=== PATIENT | male | born 1965 | race Caucasian/White ===

== ENCOUNTER 2017-05-17 19:49 | Emergency (ER) | payer MEDICAID, MEDICARE ==
[~2017-05-17] VITALS: Ht 185.4 cm; Wt 72.6 kg
[~2017-05-17 19:49] MED LIST: ACETAMINOPHEN-1 EAC1 ORAL; CIPROFLOXACIN500 M2 ORAL; METRONIDAZOLE500 MG ORAL; VIBRAMYCIN100 MG ORAL
[2017-05-17] MEDS ORDERED: VIBRAMYCIN100 MG ORAL (20:30)
[2017-05-17] MEDS ORDERED: TIVICAY50 MG ORAL (20:30)
[2017-05-17] MEDS ORDERED: ACYCLOVIR800 MG ORAL (20:30)
[2017-05-17] MEDS ORDERED: ODEFSEY TABLET1 EACH PO (20:30)
[2017-05-17] MEDS ORDERED: Lidocaine 1% 10mg/ml/EPI 0.01mg/ml 50ml INJ ONE (21:00)
--- NOTE | 2017-05-17 21:45 | Emergency Room Report ---
History of Present Illness General Chief Complaint: Skin Rash/Abscess Source: Patient Present Illness HPI Patient 52-year-old male presented after increased left groin area. Patient gradual onset of symptoms. Patient had denied recent fever. He reported having increased pain to his left calf which had become increasingly swollen. Patient said he had prior history of psoriasis and had injury after recent scratching to the left lateral leg. The patient states he is HIV positive and but has had normal CD4 counts. Allergies: Coded Allergies: No Known Allergies (Unverified , 05/17/17) Patient History Past Medical History: HIV Reviewed Nursing Documentation: PMH: Agreed, PSxH: Agreed Nursing Documentation-PM Past Medical History: No History, Except For Hx Hypertension: Yes Review of Systems All Other Systems: negative except mentioned in HPI Physical Exam Vital Signs Date Time Temp Pulse Resp B/P Pulse Ox O2 Delivery O2 Flow Rate FiO2 05/17/17 20:26 98.2 112 19 109/77 97 Room Air Sp02 EP Interpretation: reviewed, normal General Appearance: normal inspection, well appearing, no apparent distress, alert, GCS 15 Head: atraumatic ENT: normal ENT inspection, hearing grossly normal, normal voice Neck: normal inspection, full range of motion, supple, no bony tend Respiratory: normal inspection, lungs clear, normal breath sounds, no respiratory distress, no retraction, no wheezing Cardiovascular #1: regular rate, rhythm, no edema Gastrointestinal: normal inspection, normal bowel sounds, non tender, soft, no guarding, no hernia Genitourinary: no CVA tenderness Musculoskeletal: normal inspection, back normal, normal range of motion Neurologic: normal inspection, alert, responsive, speech normal Psychiatric: normal inspection, judgement/insight normal, mood/affect normal Skin: no rash, other - left leg erythema induration to left lateral calf. Procedures Incision and Drainage Incision and Drainage : Consent: Verbal Blade Size: 15 I & D Procedure: betadine prep, sterile drapes applied Wound Location: lower extremity Wound's Depth, Shape: into muscle Wound Length (cm): 1 Wound Explored: clean Anesthesia: Lidocaine w/ Epi Volume Anesthetic (ccs): 7 Patient Tolerated: Well Complications: None Medical Decision Making Diagnostic Impression: Primary Impression: Cellulitis and abscess of leg Additional Impression: HIV (human immunodeficiency virus infection) ER Course Patient presented for skin rash. Differential diagnosis included was not limited to abscess, cellulitis, folliculitis, necrotizing fasciitis. Because of complexity of patient's case laboratory testing and imaging studies were ordered.The patient noted be recently on steroids The patient was given IV antibiotics as well as IV fluids. A chest x-ray showed no evidence of the patient was on monitor tech. The patient was noted to have evidence of abscess to his left lower extremity. This was incised and drained with a moderate amount purulent material. Patient given Toradol for pain.Patient is advised to recheck with her primary care physician in the next one to 2 days for wound recheck patient given prescription for antibiotics. Laboratory Tests Test 05/17/17 20:55 05/17/17 21:40 Sodium Level 133 mEQ/L (135-145) L Potassium Level 4.6 mEQ/L (3.4-4.9) Chloride Level 96 mEQ/L (98-107) L Carbon Dioxide Level 23 mEQ/L (20-30) Anion Gap 14 (5-15) Blood Urea Nitrogen 13 mg/dL (7-23) Creatinine 0.9 mg/dL (0.7-1.2) Estimate Glomerular Filtration Rate > 60 mL/min (>60) Glucose Level 98 mg/dL (74-106) Calcium Level 9.1 mg/dL (8.6-10.2) Total Bilirubin 0.7 mg/dL (0.0-1.2) Aspartate Amino Transferase (AST) 18 U/L (5-40) Alanine Aminotransferase (ALT) 25 U/L (3-41) Alkaline Phosphatase 81 U/L (40-129) Total Creatine Kinase 60 U/L (38-174) Creatine Kinase MB 2.5 ng/mL (< 6.7) Creatine Kinase MB Relative Index 4.1 Total Protein 7.2 g/dL (6.6-8.7) Albumin 3.9 g/dL (3.5-5.2) Globulin 3.3 g/dL Albumin/Globulin Ratio 1.1 (1.0-2.7) White Blood Count 15.1 K/UL (4.8-10.8) H Red Blood Count 4.32 M/UL (4.70-6.10) L Hemoglobin 14.7 G/DL (14.2-18.0) Hematocrit 42.0 % (42.0-52.0) Mean Corpuscular Volume 97 FL (80-99) Mean Corpuscular Hemoglobin 34.0 PG (27.0-31.0) H Mean Corpuscular Hemoglobin Concent 35.0 G/DL (32.0-36.0) Red Cell Distribution Width 11.6 % (11.6-14.8) Platelet Count 228 K/UL (150-450) Mean Platelet Volume 5.7 FL (6.5-10.1) L Neutrophils (%) (Auto) 83.4 % (45.0-75.0) H Lymphocytes (%) (Auto) 7.5 % (20.0-45.0) L Monocytes (%) (Auto) 8.2 % (1.0-10.0) Eosinophils (%) (Auto) 0.0 % (0.0-3.0) Basophils (%) (Auto) 0.9 % (0.0-2.0) Lactic Acid Level 0.90 mmol/L (0.66-2.22) Troponin I < 0.30 ng/mL (<=0.30) Last Vital Signs Date Time Temp Pulse Resp B/P Pulse Ox O2 Delivery O2 Flow Rate FiO2 05/17/17 20:26 98.2 112 19 109/77 97 Room Air Status: improved Disposition: HOME, SELF-CARE Condition: Stable Scripts Hydrocodone Bit/Acetaminophen 5-325* (NORCO 5-325 TABLET*) 1 Each Tablet 1 TAB ORAL Q4H Y for For Pain, #10 TAB Prov: Spencer Be 05/18/17 Cephalexin* (KEFLEX*) 500 Mg Capsule 500 MG ORAL Q6H, #28 CAP 0 Refills Prov: Spencer Be 05/18/17 Trimethoprim/Sulfamethoxazole 160/800* (BACTRIM DS TABLET*) 1 Each Tablet 1 TAB ORAL Q12H, #14 TAB 0 Refills Prov: Spencer Be 05/18/17 Referrals: NON PHYSICIAN (PCP) Spencer Be May 17, 2017 21:45
[2017-05-17 21:56] LABS: BASOPHILS % (AUTO) 0.9 % (0.0-2.0); LYMPHOCYTES % (AUTO) 7.5 % (20.0-45.0); MEAN CORPUSCULAR VOLUME 97 FL (80-99); MEAN PLATELET VOLUME 5.7 FL (6.5-10.1); MONOCYTES % (AUTO) 8.2 % (1.0-10.0); NEUTROPHILS % (AUTO) 83.4 % (45.0-75.0); PLATELET COUNT 228 K/UL (150-450); RED BLOOD COUNT 4.32 M/UL (4.70-6.10); RED CELL DISTRIBUTION WIDTH 11.6 % (11.6-14.8); WHITE BLOOD COUNT 15.1 K/UL (4.8-10.8)
[2017-05-17 22:16] LABS: TROPONIN I < 0.30 ng/mL (<=0.30)
[2017-05-17 22:19] LABS: ALANINE AMINOTRANSFERASE 25 U/L (3-41); ALBUMIN/GLOBULIN RATIO 1.1 (1.0-2.7); ANION GAP 14 (5-15); ASPARTATE AMINO TRANSFERASE 18 U/L (5-40); CALCIUM 9.1 mg/dL (8.6-10.2); CARBON DIOXIDE 23 mEQ/L (20-30); CHLORIDE 96 mEQ/L (98-107); CREATININE 0.9 mg/dL (0.7-1.2); GLOMERULAR FILTRATION RATE > 60 mL/min (>60); HEMOLYSIS 42; POTASSIUM 4.6 mEQ/L (3.4-4.9); SODIUM 133 mEQ/L (135-145); TOTAL PROTEIN 7.2 g/dL (6.6-8.7)
[2017-05-17 22:29] LABS: CKMB 2.5 ng/mL (< 6.7)
[2017-05-17] MEDS ORDERED: Ketorolac 30mg Inj IV ONE (23:00)
[2017-05-18 00:03] VITALS: BP 109/70
[2017-05-18] MEDS ORDERED: NORCO 5-325 TA1 EAC1 ORAL (00:19)
[2017-05-18] MEDS ORDERED: BACTRIM DS TAB1 EAC1 ORAL (00:19)
[2017-05-18] MEDS ORDERED: KEFLEX500 MG ORAL (00:19)
[2017-05-18 00:46] VITALS: BP 109/70
--- NOTE | 2017-05-18 14:11 | Diagnostic Imaging Report ---
Indication: PAIN Technique: One view of the chest Comparison: none Findings: Patient is rotated to the right. There is a right-sided aortic arch. Lungs and pleural spaces are clear. Impression: No acute process Incidental finding right-sided aortic arch
== END 2017-05-18 00:48 | disposition home or self-care (01) ==
LOC: EMR 21:11
DX: L03.116 Cellulitis of left lower limb (principal); B20 Human immunodeficiency virus [HIV] disease; I10 Essential (primary) hypertension
CPT/HCPCS: 10060; 36415; 71010; 80053; 82550; 82553; 83605; 84484; 85025; 87040; 96374; 96375; 99284; J1885

== ENCOUNTER 2020-01-22 12:29 | Emergency (ER) | payer MEDICARE ==
[~2020-01-22] VITALS: Ht 183.5 cm; Wt 71.7 kg
[~2020-01-22 12:29] MED LIST changes: +ACYCLOVIR800 MG ORAL; +BACTRIM DS TAB1 EAC1 ORAL; +KEFLEX500 MG ORAL; +NORCO 5-325 TA1 EAC1 ORAL; +ODEFSEY TABLET1 EACH PO; +TIVICAY50 MG ORAL
[2020-01-22 13:00] VITALS: BP 138/93
--- NOTE | 2020-01-22 13:01 | NUR ---
ED Nurse Note: Patient walked in to ER c/o right leg abscess, stated so painful to walk. Patient AAO x4, VSS at this time, sk,in is warm to touch.
[2020-01-22] MEDS ORDERED: HYDROcodone/Acetamin 5/325 tab ORAL ONE (13:15)
[2020-01-22] MEDS ORDERED: Cephalexin 250mg/5ml Susp 100mL Bottle ORAL ONE (13:15)
[2020-01-22] MEDS ORDERED: Bactrim-DS 1 tab ORAL ONE (13:15)
[2020-01-22] MEDS ORDERED: NORCO 5-325 TA1 EAC1 ORAL (13:35)
[2020-01-22] MEDS ORDERED: CEPHALEXIN500 MG ORAL (13:35)
[2020-01-22] MEDS ORDERED: DOXYCYCLINE MO100 MG ORAL (13:35)
--- NOTE | 2020-01-22 13:48 | Emergency Room Report ---
History of Present Illness General Chief Complaint: Skin Rash/Abscess Source: Patient (Spencer Be MD) Present Illness HPI Is a 54-year-old male who presents after increased right lower extremity swelling and pain for the past 1 day. Prior history of HIV. Reports having cell count in the 300s. Reports previously being undetectable. States he had increased discomfort to the medial left calf. Reports of increased tenderness to the right groin area. Had been not taking any new medications. Denies any definite fever. Reports having increased generalized dizziness. (Spencer Be MD) Allergies: Coded Allergies: No Known Allergies (Unverified , 05/17/17) COVID-19 Screening Contact w/high risk pt: No Recent Travel to affected area: No Experienced COVID-19 symptoms?: No (Spencer Be MD) Patient History Past Medical History: see triage record Reviewed Nursing Documentation: PMH: Agreed; PSxH: Agreed (Spencer Be MD) Nursing Documentation-PMH Hx Hypertension: Yes (Spencer Be MD) Review of Systems All Other Systems: negative except mentioned in HPI (Spencer Be MD) Physical Exam Vital Signs Date Time Temp Pulse Resp B/P (MAP) Pulse Ox O2 Delivery O2 Flow Rate FiO2 01/22/20 12:53 98.4 91 22 138/93 (108) 98 Room Air Sp02 EP Interpretation: reviewed, normal General Appearance: normal inspection, well appearing, no apparent distress, alert, GCS 15 Head: atraumatic ENT: normal ENT inspection, hearing grossly normal, normal voice Neck: normal inspection, full range of motion, supple, no bony tend Respiratory: normal inspection, lungs clear, normal breath sounds, no respiratory distress, no retraction, no wheezing Cardiovascular #1: regular rate, rhythm, no edema Gastrointestinal: normal inspection, normal bowel sounds, non tender, soft, no guarding, no hernia Genitourinary: no CVA tenderness Musculoskeletal: normal inspection, back normal, normal range of motion Neurologic: alert, responsive, speech normal, normal inspection Psychiatric: normal inspection, judgement/insight normal, mood/affect normal (Spencer Be MD) Procedures Ultrasound Ultrasound : Consent: Verbal Patient Tolerated: Well Complications: None Progress Cobblestoning in the medial aspect of the right lower extremity, upper calf, consistent with a cellulitis. No abscess or other deep space infection were found. (Kyle Whyte MD) Medical Decision Making Diagnostic Impression: Primary Impression: Cellulitis, leg ER Course Briefly, I assumed care of this patient approximately 2 PM. He is a 54-year- old male presenting for pain and swelling of the right lower extremity. Exam consistent with a cellulitis which he has had in the past. At the time of signout we are awaiting labs and imaging results. No evidence of deep space infection or subcutaneous air on x-ray. Bedside ultrasound shows superficial cobblestoning consistent with a cellulitis but no abscess or other major findings. Labs are within normal limits. Patient will be discharged with antibiotics and pain medication. Discussed follow-up and reasons to return to the emergency department. He understands and agrees with this treatment plan. Laboratory Tests Test 01/22/20 13:50 White Blood Count 12.1 K/UL (4.8-10.8) H Red Blood Count 4.50 M/UL (4.70-6.10) L Hemoglobin 14.4 G/DL (14.2-18.0) Hematocrit 41.1 % (42.0-52.0) L Mean Corpuscular Volume 91 FL (80-99) Mean Corpuscular Hemoglobin 32.1 PG (27.0-31.0) H Mean Corpuscular Hemoglobin Concent 35.2 G/DL (32.0-36.0) Red Cell Distribution Width 12.2 % (11.6-14.8) Platelet Count 233 K/UL (150-450) Mean Platelet Volume 5.8 FL (6.5-10.1) L Neutrophils (%) (Auto) 82.8 % (45.0-75.0) H Lymphocytes (%) (Auto) 11.5 % (20.0-45.0) L Monocytes (%) (Auto) 5.2 % (1.0-10.0) Eosinophils (%) (Auto) 0.0 % (0.0-3.0) Basophils (%) (Auto) 0.6 % (0.0-2.0) Sodium Level 137 MMOL/L (136-145) Potassium Level 3.7 MMOL/L (3.5-5.1) Chloride Level 102 MMOL/L (98-107) Carbon Dioxide Level 23 MMOL/L (21-32) Anion Gap 12 mmol/L (5-15) Blood Urea Nitrogen 13 mg/dL (7-18) Creatinine 1.1 MG/DL (0.55-1.30) Estimated Glomerular Filtration Rate > 60 mL/min (>60) Glucose Level 186 MG/DL (74-106) H Calcium Level 9.3 MG/DL (8.5-10.1) Total Bilirubin 0.2 MG/DL (0.2-1.0) Aspartate Amino Transferase (AST) 18 U/L (15-37) Alanine Aminotransferase (ALT) 23 U/L (12-78) Alkaline Phosphatase 79 U/L (46-116) Total Protein 7.3 G/DL (6.4-8.2) Albumin 3.8 G/DL (3.4-5.0) Globulin 3.5 g/dL Albumin/Globulin Ratio 1.1 (1.0-2.7) (Kyle Wyhte MD) Other X-Ray Diagnostic Results Other X-Ray Diagnostic Results : X-Ray ordered: Right lower extremity # of Views/Limited Vs Complete: Complete Indication: Pain Interpretation: no dislocation, no soft tissue swelling, no fractures, other - No subcutaneous gas Impression: No acute disease Electronically Signed by: Electronically signed by Dr. Kyle Whyte (Kyle Whyte MD) Last Vital Signs Date Time Temp Pulse Resp B/P (MAP) Pulse Ox O2 Delivery O2 Flow Rate FiO2 01/22/20 13:00 98.4 91 22 138/93 98 Room Air (Spencer Be MD) Disposition: HOME, SELF-CARE Condition: Stable Scripts Cephalexin* (KEFLEX*) 500 Mg Capsule 500 MG ORAL EVERY 6 HOURS, #28 CAP Prov: Spencer Be MD 01/22/20 Doxycycline Monohydrate* (DOXYCYCLINE MONOHYDRATE*) 100 Mg Capsule 100 MG ORAL TWICE A DAY, #14 CAP 0 Refills Prov: Spencer Be MD 01/22/20 Hydrocodone Bit/Acetaminophen 5-325* (NORCO 5-325 TABLET*) 1 Each Tablet 1 TAB ORAL Q4H PRN for FOR PAIN, #12 TAB 0 Refills Prov: Spencer Be MD 01/22/20 Patient Instructions: Cellulitis, [id number] Spencer Be MD Jan 22, 2020 13:48 Kyle Whyte MD Jan 22, 2020 15:32
--- NOTE | 2020-01-22 13:50 | NUR ---
ED Nurse Note: Blood specimen collected, sent to labs. IV site patent and kempt.
[2020-01-22 14:20] LABS: ANION GAP 12 mmol/L (5-15); BLOOD UREA NITROGEN 13 mg/dL (7-18); CALCIUM 9.3 MG/DL (8.5-10.1); CARBON DIOXIDE 23 MMOL/L (21-32); CHLORIDE 102 MMOL/L (98-107); CREATININE 1.1 MG/DL (0.55-1.30); POTASSIUM 3.7 MMOL/L (3.5-5.1); SODIUM 137 MMOL/L (136-145)
[2020-01-22 14:25] LABS: ALANINE AMINOTRANSFERASE 23 U/L (12-78); ALBUMIN 3.8 G/DL (3.4-5.0); ALBUMIN/GLOBULIN RATIO 1.1 (1.0-2.7); ALKALINE PHOSPHATASE 79 U/L (46-116); ASPARTATE AMINO TRANSFERASE 18 U/L (15-37); BILIRUBIN,TOTAL 0.2 MG/DL (0.2-1.0)
[2020-01-22 14:30] LABS: BASOPHILS % (AUTO) 0.6 % (0.0-2.0); HEMATOCRIT 41.1 % (42.0-52.0); HEMOGLOBIN 14.4 G/DL (14.2-18.0); LYMPHOCYTES % (AUTO) 11.5 % (20.0-45.0); MEAN CORPUSCULAR VOLUME 91 FL (80-99); MONOCYTES % (AUTO) 5.2 % (1.0-10.0); NEUTROPHILS % (AUTO) 82.8 % (45.0-75.0); PLATELET COUNT 233 K/UL (150-450); RED CELL DISTRIBUTION WIDTH 12.2 % (11.6-14.8); WHITE BLOOD COUNT 12.1 K/UL (4.8-10.8)
[2020-01-22 16:02] VITALS: BP 138/93
--- NOTE | 2020-01-22 16:03 | NUR ---
ER DISCHARGE NOTE: Patient is cleared to be discharged per ERMD, pt is aox4, on room air, with stable vital signs. pt was given dc and prescription instructions, pt was able to verbalize understanding, pt id band and iv site removed without complications. pt is able to ambulate with steady gait. pt took all belongings.
--- NOTE | 2020-01-22 17:09 | Diagnostic Imaging Report ---
Indication: Leg pain Technique: 2 views of the left tibia and fibula Comparison: none Findings: No acute fractures. No dislocations. There are arterial calcifications Impression: Negative
== END 2020-01-22 16:04 | disposition home or self-care (01) ==
LOC: EMR 13:00
DX: L03.115 Cellulitis of right lower limb (principal); I10 Essential (primary) hypertension; B20 Human immunodeficiency virus [HIV] disease
CPT/HCPCS: 36415; 73590; 80053; 85025; 96360; 99284; J7030

== ENCOUNTER 2020-01-24 10:50 | Emergency (ER) | payer MEDICARE ==
[~2020-01-24] VITALS: Ht 182.9 cm; Wt 72.6 kg
[~2020-01-24 10:50] MED LIST changes: +CEPHALEXIN500 MG ORAL; +DOXYCYCLINE MO100 MG ORAL
--- NOTE | 2020-01-24 11:00 | NUR ---
ED Nurse Note: pt walked in to Ed due to worsening on right lower leg wound. pt seen by [facility] couple days ago for celluitits. on antibiotics but sx gets worse. referred by PCP to ED for further eval. pt is ambulatory with crutches. swelling noted on right lower leg with redness. AAO x4. respirations even and non-labored noted. skin warm to touch. on cardiac rehab nurse. will wait for the further order.
[2020-01-24] MEDS ORDERED: BIKTARVY 50-201 EACH PO (11:02)
[2020-01-24] MEDS ORDERED: Sodium Chloride 2,200 ML IVLG ONE (11:15)
[2020-01-24] MEDS ORDERED: Vancomycin 1.5gm/NS Premix 275 ML IVPB ONE (11:15)
[2020-01-24] MEDS ORDERED: cefTRIAXone 1 GM in NS 55 ML IVPB ONE (11:15)
--- NOTE | 2020-01-24 11:26 | Emergency Room Report ---
History of Present Illness General Chief Complaint: Skin Rash/Abscess Source: Patient, Medical Record Present Illness HPI Patient presents with continuing and worsening redness and swelling to the right leg reports that he has had an infection there in the past Patient also has HIV positive status and CD4 count levels have decreased per the patient's reports Patient denies any obvious documented fevers denies any chest pain he was here recently and placed on oral antibiotics however The area continues to worsen patient also reports 5 out of 10 pain Allergies: Coded Allergies: No Known Allergies (Unverified , 05/17/17) COVID-19 Screening Contact w/high risk pt: No Recent Travel to affected area: No Experienced COVID-19 symptoms?: No Patient History Past Medical History: see triage record Reviewed Nursing Documentation: PMH: Agreed; PSxH: Agreed Nursing Documentation-PMH Past Medical History: No History, Except For Hx Hypertension: Yes Review of Systems All Other Systems: negative except mentioned in HPI Physical Exam Vital Signs Date Time Temp Pulse Resp B/P (MAP) Pulse Ox O2 Delivery O2 Flow Rate FiO2 01/24/20 10:54 98.4 117 20 109/72 (84) 98 Room Air Sp02 EP Interpretation: reviewed, normal General Appearance: well appearing, no apparent distress Head: normocephalic, atraumatic Eyes: bilateral eye PERRL, bilateral eye EOMI ENT: EOM grossly intact Neck: supple Respiratory: lungs clear, no respiratory distress, no retraction Cardiovascular #1: regular rate, rhythm Gastrointestinal: non tender, soft Musculoskeletal: other - Patient has significant redness and swelling involving the right lower extremity involves the back of the knee and moves upwards proximally and distally from that area posteriorly area is also warm to touch Neurologic: alert, oriented x3 Skin: other - As above Lymphatic: no adenopathy Medical Decision Making Diagnostic Impression: Primary Impression: Cellulitis, leg Additional Impression: complex cellulitis ER Course Multiple differentials and consideration patient appears to have failed outpatient attempt of oral antibiotics he is immune compromised and at this time further Work-up was initiated patient's white blood cell count has increased the area is also fairly significant involving the back of the right leg Patient initiated on broad-spectrum IV antibiotics Requires further inpatient care secondary to insurance purposes it is requested for transfer Patient remains hemodynamically stable for that Labs Test 01/24/20 11:36 White Blood Count 13.8 K/UL (4.8-10.8) Red Blood Count 4.98 M/UL (4.70-6.10) Hemoglobin 15.7 G/DL (14.2-18.0) Hematocrit 44.9 % (42.0-52.0) Mean Corpuscular Volume 90 FL (80-99) Mean Corpuscular Hemoglobin 31.6 PG (27.0-31.0) Mean Corpuscular Hemoglobin Concent 35.0 G/DL (32.0-36.0) Red Cell Distribution Width 11.9 % (11.6-14.8) Platelet Count 208 K/UL (150-450) Mean Platelet Volume 6.0 FL (6.5-10.1) Neutrophils (%) (Auto) % (45.0-75.0) Lymphocytes (%) (Auto) % (20.0-45.0) Monocytes (%) (Auto) % (1.0-10.0) Eosinophils (%) (Auto) % (0.0-3.0) Basophils (%) (Auto) % (0.0-2.0) Differential Total Cells Counted 100 Neutrophils % (Manual) 91 % (45-75) Lymphocytes % (Manual) 7 % (20-45) Monocytes % (Manual) 2 % (1-10) Eosinophils % (Manual) 0 % (0-3) Basophils % (Manual) 0 % (0-2) Band Neutrophils 0 % (0-8) Platelet Estimate Adequate Platelet Morphology Normal Red Blood Cell Morphology Normal Sodium Level 133 MMOL/L (136-145) Potassium Level 3.9 MMOL/L (3.5-5.1) Chloride Level 97 MMOL/L (98-107) Carbon Dioxide Level 25 MMOL/L (21-32) Blood Urea Nitrogen 21 mg/dL (7-18) Creatinine 1.2 MG/DL (0.55-1.30) Estimat Glomerular Filtration Rate > 60 mL/min (>60) Glucose Level 118 MG/DL (74-106) Lactic Acid Level 1.20 mmol/L (0.4-2.0) Calcium Level 8.9 MG/DL (8.5-10.1) Total Bilirubin 0.5 MG/DL (0.2-1.0) Aspartate Amino Transf (AST/SGOT) 17 U/L (15-37) Alanine Aminotransferase (ALT/SGPT) 30 U/L (12-78) Alkaline Phosphatase 96 U/L (46-116) Total Creatine Kinase 71 U/L (26-308) Creatine Kinase MB 1.7 NG/ML (0.0-3.6) Creatine Kinase MB Relative Index 2.3 Troponin I 0.000 ng/mL (0.000-0.056) Total Protein 8.0 G/DL (6.4-8.2) Albumin 3.4 G/DL (3.4-5.0) Globulin 4.6 g/dL Albumin/Globulin Ratio 0.7 (1.0-2.7) Rhythm Strip Diag. Results EP Interpretation: yes Rate: 77 Rhythm: NSR, no PVC's, no ectopy Last Vital Signs Date Time Temp Pulse Resp B/P (MAP) Pulse Ox O2 Delivery O2 Flow Rate FiO2 01/24/20 10:54 98.4 117 20 109/72 (84) 98 Room Air Status: improved Disposition: SHORT-TERM HOSP Condition: Stable Soheila Montero DO Jan 24, 2020 11:26
[2020-01-24] MEDS ORDERED: Morphine Sulfate 4mg/ml Inj (IV USE ONLY) IVP ONE (12:00)
[2020-01-24 12:01] LABS: HEMATOCRIT 44.9 % (42.0-52.0); HEMOGLOBIN 15.7 G/DL (14.2-18.0); MEAN CORPUSCULAR VOLUME 90 FL (80-99); PLATELET COUNT 208 K/UL (150-450); RED BLOOD COUNT 4.98 M/UL (4.70-6.10); RED CELL DISTRIBUTION WIDTH 11.9 % (11.6-14.8); WHITE BLOOD COUNT 13.8 K/UL (4.8-10.8)
[2020-01-24 12:09] VITALS: BP 115/73
[2020-01-24 12:22] LABS: ALANINE AMINOTRANSFERASE 30 U/L (12-78); ALBUMIN 3.4 G/DL (3.4-5.0); ALBUMIN/GLOBULIN RATIO 0.7 (1.0-2.7); ALKALINE PHOSPHATASE 96 U/L (46-116); ASPARTATE AMINO TRANSFERASE 17 U/L (15-37); BILIRUBIN,TOTAL 0.5 MG/DL (0.2-1.0); BLOOD UREA NITROGEN 21 mg/dL (7-18); CALCIUM 8.9 MG/DL (8.5-10.1); CARBON DIOXIDE 25 MMOL/L (21-32); CHLORIDE 97 MMOL/L (98-107); CKMB 1.7 NG/ML (0.0-3.6); CREATINE KINASE 71 U/L (26-308); CREATININE 1.2 MG/DL (0.55-1.30); POTASSIUM 3.9 MMOL/L (3.5-5.1); SODIUM 133 MMOL/L (136-145)
--- NOTE | 2020-01-24 13:49 | NUR ---
ED Nurse Note: Patient will trasnfer to [facility] Call for SBAR report at 1350. No answer. Will call again.
--- NOTE | 2020-01-24 14:13 | NUR ---
ED Nurse Note: Reports given to ELIZABETH Starks at the [facility]. pt is transfer by [facility] unit [id number].
[2020-01-24 14:16] VITALS: BP 123/70
== END 2020-01-24 14:15 | disposition short-term general hospital (02) ==
LOC: EMR 11:25
DX: L03.115 Cellulitis of right lower limb (principal); I10 Essential (primary) hypertension; B20 Human immunodeficiency virus [HIV] disease
CPT/HCPCS: 36415; 80053; 82550; 82553; 83605; 84484; 85007; 85025; 87040; 93005; 96365; 96375; 99284; J0696; J2270; J2405; J3370; J7030